=== PATIENT | female | born 1995 | race African-American/Black ===

== ENCOUNTER 2021-02-13 10:03 | Emergency (ER) | payer BC ==
[~2021-02-13] VITALS: Ht 162.6 cm; Wt 104.0 kg
[2021-02-13 10:05] VITALS: BP 123/83
== END 2021-02-13 13:05 | disposition home or self-care (01) ==
LOC: ER 10:03
DX: U07.1 COVID-19 (principal)
CPT/HCPCS: 71045; 81025; 87426; 87804; 99284